=== PATIENT | male | born 1975 | race Caucasian/White ===

== ENCOUNTER 2018-01-08 08:59 | Inpatient (IN) | payer OTHER, MEDICAID ==
[~2018-01-08] VITALS: Ht 167.6 cm; Wt 81.6 kg
[2018-01-08 09:01] VITALS: BP 137/85
[2018-01-08 09:27] LABS: ABSOLUTE LYMPHOCYTES 1.5 thou/uL (0.8-5.3); ABSOLUTE MONOCYTES 0.4 thou/uL (0.0-1.2); ABSOLUTE NEUTROPHILS 6.6 thou/uL (1.6-8.1); BASOPHILS 0.4 %; EOSINOPHILS 0.1 %; HEMATOCRIT 49.1 % (42.0-52.0); HEMOGLOBIN 16.7 gm/dL (14.0-18.0); LYMPHOCYTES 17.7 %; MCH 32.7 pg (26.0-34.0); MCHC 33.9 g/dL (28.0-37.0); MCV 96.5 fL (80.0-100.0); MONOCYTES 4.7 %; MPV 7.4 fl. (7.2-11.1); NUCLEATED RBCS 0 /100WBC; PLATELET COUNT* 306 thou/uL (150-400); POLYS 77.1 %; RBC 5.09 mil/uL (4.50-6.00); RDW-CV 12.2 % (10.5-14.5); WBC 8.5 thou/uL (4.0-11.0)
[2018-01-08 09:41] LABS: APTT 20.2 Seconds (25.0-31.3); PROTIME 10.4 Seconds (9.20-11.50)
[2018-01-08 09:46] LABS: CALCIUM 8.7 mg/dL (8.5-10.1); CREATININE 0.9 mg/dL (0.6-1.3); POTASSIUM 4.1 mmol/L (3.5-5.1)
[2018-01-08 09:53] LABS: ALBUMIN 4.6 g/dL (3.4-5.0); TOTAL BILIRUBIN 0.7 mg/dL (<0.1-1.0); TOTAL PROTEIN 7.8 g/dL (6.4-8.2)
[2018-01-08 09:59] LABS: TROPONIN-I LEVEL 1.69 ng/mL (<0.06)
[2018-01-08] MEDS ORDERED: NORCO 5-325 TA1 EACH PO (10:56)
[2018-01-08] MEDS ORDERED: PHENERGAN 25 MG25 M1 PO (10:56)
[2018-01-08 11:27] LABS: CHOLESTEROL 244 mg/dL (<200); HDL CHOLESTEROL 44 mg/dL (>40); LDL CHOLESTEROL 184 mg/dL (<100); TC:HDL 5.5 Ratio (Not establshd); TRIGLYCERIDE 81 mg/dL (<150); VLDL 16 mg/dL (<40)
[2018-01-08 11:31] LABS: SERUM ASSESSMENT Clear
[2018-01-08 11:46] VITALS: BP 126/76
--- NOTE | 2018-01-08 12:18 | NUR ---
PT ORIENTED TO ROOM AND UNIT. BED LOW AND LOCKED SIDE RAILS UPX 3 , CALL LIGHT IN REACH. HEPARIN GTT REMAINS. WILL CONTINUE TO ASSESS.
--- NOTE | 2018-01-08 16:38 | NUR ---
DR. CLARKE HAD LONG TALK WITH PATIENT ABOUT IMPORTANCE OF STAYING IN HOSPITAL AND POSSIBLY HAVING A HEART CATH. I WAS WITH DR. CLARKE AT BEDSIDE WHILE HE DID COMPLETE PATIENT EDUCATION ABOUT BENEFITS AND RISKS OF PATIENT'S CONDITION. MARY IN CT ONFORMED ME THAT CTA ORDERED BY DR. CLARKE WOULD NOT BE ABLE TO BE COMPETED UNTIL WEDNESDAY. DR CLARKE AWARE. WILL CONTINUE TO ASSESS.
--- NOTE | 2018-01-08 18:42 | NUR ---
PT DENIES CHEST PAIN AT THIS TIME HOWEVER IS NO REQUESTING A HEART CATH. INFORM DR. 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 WILL PASS ONTO NIGHT RN.
[2018-01-08 20:00] VITALS: BP 123/84
--- NOTE | 2018-01-08 22:09 | NUR ---
CALL TO DOCTOR TRICIA REGARDING PATIENT'S PAIN, SEE ORDERS. DOCTOR ISSAC CALLED REGARDING PATIENT'S PAIN, SEE ORDERS. PATIENT IS NO LONGER COMPLAINING OF CHEST PAIN.
[2018-01-09] VITALS (22 sets, daily range): BP systolic 87–152; BP diastolic 57–107
--- NOTE | 2018-01-09 14:57 | EKG ---
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
--- NOTE | 2018-01-09 14:57 | EKG ---
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: : 1975 Requested By: Kita Severino Order Number: [id number] Kenyatta MD: Ruben Wilder Measurements Intervals [place] Rate: 69 P: 49 [place]: 152 QRS: -27 QRSD: 88 T: -2 QT: 426 QTc: 457 Interpretive Statements Sinus rhythm LVH by voltage Inferior infarct, age indeterminate Abnrm T, consider ischemia, anterolateral lds No previous ECG available for comparison Electronically Signed On 01-09-2018 14:57:43 CDT by Ruben Wilder [email or web address] <ELECTRONICALLY SIGNED> By: Ruben Wilder MD, FACC 01/09/18 1457 1122 1122 Ruben Wilder MD, [facility] /EPI
--- NOTE | 2018-01-09 14:59 | EKG ---
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: : 1975 Requested By: Kita Severino Order Number: [id number] MD: Ruben Wilder Measurements Intervals [place] Rate: 103 P: 46 [place]: 156 QRS: -34 QRSD: 79 T: 0 QT: 351 QTc: 460 Interpretive Statements Sinus tachycardia Probable left atrial enlargement Inferior infarct, old Anterolateral infarct, age indeterminate No previous ECG available for comparison Electronically Signed On 01-09-2018 14:59:23 CDT by Ruben Wilder [email or web address] <ELECTRONICALLY SIGNED> By: Ruben Wilder MD, [facility] 01/09/18 1459 1709 170 Ruben Wilder MD, FACC /EPI
--- NOTE | 2018-01-09 15:02 | EKG ---
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 : 1975 Requested By: Kita Severino Order Number: [id number] Kenyatta MD: Ruben Wilder Measurements Intervals [place] Rate: 72 P: 54 [place]: 152 QRS: -30 QRSD: 101 T: -36 QT: 453 QTc: 496 Interpretive Statements Sinus rhythm Inferior infarct, age indeterminate Anterolateral infarct, age indeterminate No previous ECG available for comparison Electronically Signed On 01-09-2018 15:02:31 CDT by Ruben Wilder [email or web address] <ELECTRONICALLY SIGNED> By: Ruben Wilder MD, [facility] 01/09/18 1502 0 0 Ruben Wilder MD, FAC /EPI
--- NOTE | 2018-01-09 15:40 | CARD ---
[address] [address] CARDIAC CATH REPORT Name: BLADIMIR FELTON Room: 224-P [facility] IN .R.#: [id number] Admission: 01/08/18 Attend Phys: Ruben Wilder MD Discharge: Date of : 79 Report #: [id number] THIS REPORT FOR: //name// APPROVED REPORT Study performed: 01/09/2018 07:30:38 Patient Details Patient Status: In-Patient Room #: 224 The patient is a 42 year-old male Event Personnel Samanta Hassan, Raphael Chairez (R) Daniel Gunn David Drying Oven Tender, Louann Boogie clinical administrator Performed Left Heart Cath w/or w/o Coronaries [id number] [facility] Indication Abnormal ECG, Non-STEMI , Chest pain Risk Factors Hypercholesterolemia, Tobacco History () Admission/Lab Medications/Medications given during procedure Glycoprotein IllbIlla Inhibitors Procedure Narrative The patient was brought urgently to the Cardiac Catheterization Laboratory and was prepped and draped in a sterile manner. The right femoral was infiltrated with 2% Lidocaine subcutaneous anesthesia. A 6fr Ultimum Sheath sheath was inserted into the right femoral artery. Coronary angiography was performed using coronary diagnostic catheters. The right coronary system was accessed and visualized with a Diagnostic catheter. The left coronary system was accessed and visualized with a Diagnostic catheter. The left ventricle was accessed and visualized with a Diagnostic catheter. Left ventricular/Aortic Valve gradient assessed via catheter pullback. Left ventriculogram was performed in PATRICK projection. Closure device was deployed with a 6 Fr Angioseal. The patient tolerated the procedure well and there were no complications associated with the procedure. There was no hematoma. Procedure initially performed from the right radial artery. However, because of tortuosity of the ascending aorta, the procedure had [place] [address] CARDIAC CATH REPORT Name: BLADIMIR FELTON Room: [address] IN [facility].#: [id number] Admission: 01/08/18 Attend Phys: Ruben Wilder MD Discharge: Date of : 79 Report #: [id number] femoral artery. Vascband was placed over the right radial artery at the end of the procedure. Intraoperative Conscious Sedation Sedation start time: 819 Case end Time: 913 Fentanyl 75 mcg Versed 2 mg Fluoro Time: 11.4 minutes Dose: 1711 mGy Contrast Type and Amount: Omnipaque 270 ml Hemodynamics The aortic pressure is 101/74 mmHg with a mean of 87 mmHg. The left ventricular pressure is 86/18 mmHg with a mean of mmHg. The left ventricular end diastolic pressure is 18 mmHg. There was no gradient across the aortic valve upon pullback. Pullback from the left ventricle to the aorta revealed no gradient across the aortic valve. PCI Technique Lesion Anticoagulation was achieved with Heparin. The patient was on IV Aggrastat Patient was preloaded with Plavix. Percutaneous coronary intervention was performed on the mid left anterior descending artery segment. The lesion stenosis prior to intervention was 99% with STEPAN 1 flow. A xb 3.5 lad Guide Catheter was used to engage the lm ostium. A bmw Interventional Guidewire was used to cross the lesion. Final angiography reveals 99 % stenosis with STEPAN 1 flow. COMMENTS BMW wire was unable to cross the subtotal occlusion in the mid lad. Attempted to cross the stenosis with a whisper wire. Unable to advance wire across the stenosis suggesting the stenosis represented a chronic occlusion. Conclusion 1. 95% stenosis noted of proximal lad, and 99% stenosis noted of mid lad, with slow antegrade filling of the distal lad 2. unable to advance wire into distal lad suggesting the stenosis represented a chronic occlusion 3. 70% stenosis of the second margianl branch 4. 90% stenosis of distal circumflex, and 90% stenosis of posterior descending branch 5. Apical akinesis of the left ventricle [place] [address] CARDIAC CATH REPORT Name: BLADIMIR FELTON Room: [address] IN [facility].#: [id number] Admission: 01/08/18 Attend Phys: Ruben Wilder MD Discharge: Date of : 79 Report #: [id number] of 40-45% Recommendations CABG Medications Administered Clopidogrel <ELECTRONICALLY SIGNED> By: Vasyl Sanchez MD, FACC 01/09/18 1539 1539 1539Daviellie Sanchez MD, [facility] /INF
--- NOTE | 2018-01-09 18:45 | NUR ---
RECEIVED REPORT. ASSUMED CARE OF PT AROUND 0730. PT A&O X4, VSS, O2 SAT 100% ON 2L PER NC - TITRATED OFF TO RA. 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 AM ASSESSMENT AND VITALS COMPLETED CHARTED. PT VERY ANXIOUS ABOUT CATH PROCEDURE THIS AM - SPOKE TO DR DAVENPORT REGARDING PROCEDURE AND WAS ABLE TO CONTINUE WITH CATH PLANNED. NO INTERVENTION PERFORMED - CARDIOLOGY RECOMMENDING MORE AGRESSIVE TREATMENT. PT VERY ANXIOUS AND CONCERNED ABOUT CARDIOLOGY RECOMMENDATIONS. DR CLARKE SPOKE WITH PT AND SPOUSE AT LENGTH REGARDING SITUATION, PT FELT MORE AT EASE AFTER SPEAKING TO DR CLARKE. RIGHT GROIN SITE HAD SLIGHT OOZING - PRESSURE HELD, DRESSING CHANGED. NO FURTHER OOZING. NO HEMATOMA. RIGHT RADIAL SITE CLEAN, DRY AND INTACT. VASCBAND REMOVED PER PROTOCOL. POST CATH VITALS CHARTED. PT EATING AND DRINKING WITHOUT ISSUE. IV PAIN MEDICATION GIVEN FOR REPORT OF RIGHT GROIN PAIN WITH PARTIAL RELIEF. AT BEDSIDE MOST OF SHIFT. PT ABLE TO GET UP AT 4PM; VOIDED WITHOUT ISSUE. PLAN IS FOR PT TO DECIDE UPON ROUTE OF TREATMENT HE FEELS COMFORTABLE WITH. PT CURRENTLY WATCHING TV IN BED. CALL LIGHT IS WITHIN REACH. HOURLY ROUNDING PERFORMED. LOW FALL RISK PRECAUTIONS IN PLACE.
[2018-01-10] VITALS (7 sets, daily range): BP systolic 91–144; BP diastolic 53–95
--- NOTE | 2018-01-10 04:19 | NUR ---
END SHIFT: PT RESTED WELL. ANXIOUS ABOUT DIAGNOSIS AND TREATMENTS. NEEDS MUCH ENCOURAGEMENT. PAIN IN RIGHT GROIN RELIEVED WITH PAIN MEDICATION X1. SB/NSR ON MONITOR, NO ECTOPY. MEDICATION INFORMATION SHEETS PRINTED OFF AND GIVEN TO PATIENT. ASSESSMENT UNCHANGED. PRESSURES HAVE BEEN A LITTLE SOFT OVERNIGHT. PATIENT IS CONCERNED THAT IT IS DUE TO HIS NEW BP MEDICATION. SAFETY PRECAUTIONS IN PLACE. CALL LIGHT IN REACH. PERFORMED HOURLY ROUNDING. WILL CONT TO MONITOR.
--- NOTE | 2018-01-10 16:08 | NUR ---
Pt is A&O. Resides at home with his . Normally independent. No DME. No hx of HH or SNF. Pt stated that he recently started a job, but had to quit when he got sick. CM spoke with Dr Wilder, he plans to speak with Pt today regarding treatment plan. CM following.
--- NOTE | 2018-01-10 16:36 | 2DMMODE ---
[place] [address] 2 D/M-MODE ECHOCARDIOGRAM Name: BLADIMIR FELTON Room: [address] IN [facility]#: [id number] Admission: 01/08/18 Attend Phys: Ruben Wilder, Discharge: Date of : 79 Date of Service: 01/10/18 1440 Report #: [id number] THIS REPORT FOR: //name// APPROVED REPORT Study performed: 01/10/2018 11:10:19 EXAM: Comprehensive 2D, Doppler, and color-flow Echocardiogram Patient Location: In-Patient Room #: [facility] Status: routine BSA: 1.91 HR: 55 bpm BP: 130/85 mmHg Rhythm: NSR Other Information Study Quality: Good Indications Acute MO 2D Dimensions IVSd: 10.76 (7-11mm) LVOT Diam: 19.68 (18-24mm) LVDd: 44.35 mm PWd: 7.83 (7-11mm) Ascending Ao: 28.07 (22-36mm) LVDs: 24.49 (25-40mm) Aortic Root: 27.67 mm Volumes Left Atrial Volume (Systole) LA ESV Index: 32.20 mL/m2 Aortic Valve AoV Peak Booker.: 1.41 m/s AO Peak Gr.: 7.90 mmHg LVOT Max P.86 mmHg AO Mean Gr.: 3.94 mmHg LVOT Mean P.89 mmHg LVOT Max V: 1.10 m/s AO V2 VTI: 25.26 cm LVOT Mean V: 0.61 m/s MARIYA (VTI): 2.75 cm2 LVOT V1 VTI: 22.84 cm Mitral Valve E/A Ratio: 2.23 MV Decel. Time: 161.61 ms MV E Max Booker.: 0.98 m/[place] [address] 2 D/M-MODE ECHOCARDIOGRAM Name: BLADIMIR FELTON Room: [address] IN .R.#: [id number] Admission: 01/08/18 Attend Phys: Ruben Wilder, Discharge: Date of : 79 Date of Service: 01/10/18 1440 Report #: [id number] MV PHT: 46.87 ms MVA (PHT): 4.69 cm2 TDI E/Lateral E': 5.44 E/Medial E': 7.00 Medial E' Booker.: 0.14 m/s Lateral E' Booker.: 0.18 m/s Pulmonary Valve PV Peak Booker.: 1.16 m/s PV Peak Gr.: 5.36 mmHg Tricuspid Valve RAP Estimate: 5.00 mmHg TR Peak Gr.: 22.93 mmHg RVSP: 28.00 mmHg PA Pressure: 28.00 mmHg Left Ventricle The left ventricle is normal size. There is distal septal and apical hypokinesis. There is normal left ventricular wall thickness. Left ventricular systolic function is borderline. LVEF is 50-55%. The left ventricular diastolic function is normal. Right Ventricle The right ventricle is normal size. The right ventricular systolic function is normal. Atria The left atrium size is normal. The right atrium size is normal. Aortic Valve Mild aortic valve sclerosis. Trace aortic regurgitation. There is no aortic valvular stenosis. Mitral Valve The mitral valve is normal in structure. There is no mitral valve regurgitation noted. No evidence of mitral valve stenosis. Tricuspid Valve The tricuspid valve is normal in structure. Mild tricuspid regurgitation. Pulmonic Valve The pulmonary valve is normal in structure. There is no pulmonic [place] [address] 2 D/M-MODE ECHOCARDIOGRAM Name: BLADIMIR FELTON Room: [address] IN [facility]#: [id number] Admission: 01/08/18 Attend Phys: Ruben Wilder, Discharge: Date of : 79 Date of Service: 01/10/18 1440 Report #: [id number] Great Vessels The aortic root is normal in size. IVC is normal in size and collapses >50% with inspiration. Pericardium There is no pericardial effusion. <Conclusion> The left ventricle is normal size. There is normal left ventricular wall thickness. Left ventricular systolic function is borderline. LVEF is 50-55%. The left ventricular diastolic function is normal. The right ventricle is normal size. The left atrium size is normal. Mild aortic valve sclerosis. Trace aortic regurgitation. There is no aortic valvular stenosis. The mitral valve is normal in structure. The tricuspid valve is normal in structure. Mild tricuspid regurgitation. IVC is normal in size and collapses >50% with inspiration. There is no pericardial effusion. There is distal septal and apical hypokinesis. <ELECTRONICALLY SIGNED> By: Ismael Davis MD, FACC 01/10/18 1440 144 144 Ismael Davis MD, FACC /INF
[2018-01-11] VITALS (7 sets, daily range): BP systolic 82–122; BP diastolic 45–77
--- NOTE | 2018-01-11 04:40 | NUR ---
PATIENT PARTIALLY PROGRESSING TOWARDS GOALS: RIGHT GROIN PAIN PARTIALLY MANAGED WITH PRN PAIN MEDICATION AND RELAXATION. RIGHT GROIN CARDIAC CATH SITE WITHOUT HEMATOMA OR BLEEDING BUT TENDER UPON TOUCH. RIGHT RADIAL SITE COVERED WITH GAUZE/TEGADERM AND C/D/I. PATIENT DENIES NUMBNESS/TINGLING IN EXTREMITIES. PATIENT DENIES CHEST PAIN OR DISCOMFORT. HOURLY ROUNDING OBSERVED. CALL LIGHT WITHIN REACH
[2018-01-11 05:40] LABS: ABSOLUTE EOSINOPHILS 0.1 thou/uL (0.0-0.7); ABSOLUTE LYMPHOCYTES 2.4 thou/uL (0.8-5.3); ABSOLUTE MONOCYTES 0.7 thou/uL (0.0-1.2); ABSOLUTE NEUTROPHILS 4.6 thou/uL (1.6-8.1); BASOPHILS 0.3 %; EOSINOPHILS 1.7 %; HEMOGLOBIN 14.9 gm/dL (14.0-18.0); LYMPHOCYTES 30.5 %; MONOCYTES 8.8 %; MPV 7.3 fl. (7.2-11.1); NUCLEATED RBCS 0 /100WBC; PLATELET COUNT* 262 thou/uL (150-400); POLYS 58.7 %; RBC 4.53 mil/uL (4.50-6.00); RDW-CV 12.3 % (10.5-14.5); WBC 7.8 thou/uL (4.0-11.0)
[2018-01-12] VITALS (8 sets, daily range): BP systolic 91–122; BP diastolic 53–82
--- NOTE | 2018-01-12 05:23 | NUR ---
PATIENT RESTED IN BED, NO ACUTE CHANGES. PATIENT DID NOW SHOW SIGNS OF DISTRESS. PATIENT DID NOT COMPLAIN OF CHEST PAIN. FALL PRECAUTIONS IN PLACE, CALL LIGHT WITH IN REACH, HOURLY RONDING OBSERVED.
--- NOTE | 2018-01-12 07:17 | NUR ---
ASSUMED CARE OF PT AT THIS TIME. REPORT FROM YO JEAGER. PT AOX4 AT THIS TIME. WILL CONTINUE TO MONITOR AND ASSESS.
--- NOTE | 2018-01-12 08:50 | NUR ---
PAGED TEAM REGARDING PT CONCERN REGARDING NEW BRUISING BELOW CATH SITE. PT HAD CATH ON WEDNESDAY. AREA IS TENDER BUT SOFT AT THIS TIME. WILL AWAIT CALL FROM TEAM
--- NOTE | 2018-01-12 16:06 | NUR ---
PT CALLED OUT STATING THAT HE FEELS LIGHTHEADED AND DIZZY AT THIS TIME. PT DENIES CHEST PAIN, BUT STATES HE HAS HIGH PAIN TOLERANCE. PT RESTING IN BED AND LACY WITH CARDIOLOGY AND DR CLARKE'S OFFICE PAGED AT THIS TIME. PT EDUCATED TO CALL OUT FOR AMBULATION NEEDS AT THIS TIME.
--- NOTE | 2018-01-12 18:39 | NUR ---
PT VSS THIS SHIFT AND SR ON THE MONITOR. PT DID CALL OUT WITH DIZZINESS AND LIGHTHEADEDNESS, VSS AT THAT TIME AND EKG OBTAINED. NO CONCERNS BY DR CLARKE AT THAT TIME. PT HAS TAKEN PAIN MEDS FOR GROIN PAIN THAT HAS NEW BRUISING THIS AM, TEAM AWARE. NO NEW ORDERS OR CONCERNS REGARDING BRUISING AT THIS TIME. PT TO BE NPO BE NPO AT MIDNIGHT TONIGHT. PT WAITING TO POSSIBLY HAVE CABG AT THIS TIME AND HAS TO WAIT 5 DAYS OFF PLAVIX. PT HAS ANXIETY BUT NO MEDICAITONS WERE PROVIDED FOR INCREASED ANXIETY THIS SHIFT.
[2018-01-12 22:40] LABS: ABSOLUTE EOSINOPHILS 0.2 thou/uL (0.0-0.7); ABSOLUTE LYMPHOCYTES 2.2 thou/uL (0.8-5.3); ABSOLUTE MONOCYTES 0.8 thou/uL (0.0-1.2); ABSOLUTE NEUTROPHILS 5.6 thou/uL (1.6-8.1); BASOPHILS 0.6 %; EOSINOPHILS 2.1 %; HEMATOCRIT 42.3 % (42.0-52.0); HEMOGLOBIN 14.6 gm/dL (14.0-18.0); MCH 33.1 pg (26.0-34.0); MCHC 34.4 g/dL (28.0-37.0); MCV 96.1 fL (80.0-100.0); MPV 7.2 fl. (7.2-11.1); NUCLEATED RBCS 0 /100WBC; PLATELET COUNT* 273 thou/uL (150-400); POLYS 63.3 %; RDW-CV 12.3 % (10.5-14.5); WBC 8.9 thou/uL (4.0-11.0)
[2018-01-12 23:15] LABS: PROTIME 10.2 Seconds (9.20-11.50)
[2018-01-13] VITALS (18 sets, daily range): BP systolic 93–132; BP diastolic 58–86
--- NOTE | 2018-01-13 01:41 | NUR ---
CALL FROM DOCTOR CLARKE REGARDING CATH LATER TODAY, SEE ORDERS.
--- NOTE | 2018-01-13 10:54 | NUR ---
RECEIVED REPORT FROM HEIDE AND ASSUMED CARE OF PT @ 2149.PT IS A/O X4,VSS,TRACING SR ON THE MONITOR.LUNG SOUNDS ARE CLEAR.LAST BM WAS 01/11/18.IV LEFT FOREARM PATENT WITH HEPARIN RUNNING @ 10ML/HR.IV RIGHT AC PATENT AND SALINE LOCKED.NPO STATUS MAINTAINED FOR CATH PROCEDURE THIS AFTERNOON.PT IS CALM AND COOPERATIVE WITH C/O PAIN IN RIGHT GROIN.PT IS UP AD GARETH IN ROOM.PT LEFT RESTING IN BED WITH CALL LIGHT WITHIN REACH.WILL CONTINUE TO MONITOR.
--- NOTE | 2018-01-13 13:53 | EKG ---
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[facility] : 1975 Requested By: Yasmin Case Order Number: [id number] Reading MD: Ismael Davis Measurements Intervals [place] Rate: 56 P: 38 [place]: 149 QRS: -18 QRSD: 87 T: -16 QT: 405 QTc: 391 Interpretive Statements Sinus rhythm Inferior infarct, age indeterminate Abnrm T, consider ischemia, anterolateral lds Compared to ECG 01/09/2018 05:11:07 Possible ischemia now present Myocardial infarct finding still present Electronically Signed On 01-13-2018 13:52:57 CDT by Ismael Davis [email or web address] <ELECTRONICALLY SIGNED> By: Ismael Davis MD, FACC 01/13/18 1352 1619 1619 Ismael Davis MD, FAC /EPI
--- NOTE | 2018-01-13 19:06 | NUR ---
PT HAD CATH TODAY IN LEFT GROIN WITH STENTS PLACED.SITE CLEAN,DRY AND INTACT,VSS.TRACING SR ON THE MONITOR.POST CATH EKG COMPLETED.IV HEPARIN DRIP D/C.NS INFUSING @ 125ML HR IN LEFT FOREARM.PT INSTRUCTED TO BE IMMOBILIZED UNTIL 9:30PM. HEART HEALTHY DIET RESUMED.PAIN MANAGED WELL WITH PO AND IV MEDICATIONS.PT INFORMED OF PLAN OF CARE AND COMMUNICATES UNDERSTANDING.HOURLY ROUNDING COMPLETED FOR PT SAFETY.CALL LIGHT AND FALL PRECAUTIONS IN PLACE. WILL CONTINUE TO MONITOR FOR DURATION OF SHIFT. AT BEDSIDE.
[2018-01-14] VITALS: BP 91/56
--- NOTE | 2018-01-14 01:31 | NUR ---
PATIENT RESTED IN BED, NO ACUTE CHANGES. PATIENT DID NOT SHOW SIGNS OF DISTRESS. FALL PRECAUTIONS IN PLACE, CALL LIGHT WITH IN REACH, HOURLY ROUNDING OBSERVED. PATIENT DID NOT COMPLAIN OF CHEST PAIN.
[2018-01-14 04:00] VITALS: BP 85/54
[2018-01-14 04:01] VITALS: BP 92/48
[2018-01-14 04:55] LABS: ABSOLUTE EOSINOPHILS 0.1 thou/uL (0.0-0.7); ABSOLUTE LYMPHOCYTES 1.9 thou/uL (0.8-5.3); ABSOLUTE MONOCYTES 0.6 thou/uL (0.0-1.2); ABSOLUTE NEUTROPHILS 4.3 thou/uL (1.6-8.1); BASOPHILS 0.3 %; EOSINOPHILS 1.5 %; HEMATOCRIT 40.9 % (42.0-52.0); HEMOGLOBIN 14.1 gm/dL (14.0-18.0); LYMPHOCYTES 27.5 %; MCH 33.5 pg (26.0-34.0); MCHC 34.5 g/dL (28.0-37.0); MCV 97.1 fL (80.0-100.0); MONOCYTES 8.9 %; MPV 7.4 fl. (7.2-11.1); NUCLEATED RBCS 0 /100WBC; PLATELET COUNT* 272 thou/uL (150-400); POLYS 61.8 %; RBC 4.21 mil/uL (4.50-6.00); RDW-CV 12.5 % (10.5-14.5)
[2018-01-14 05:34] LABS: ALBUMIN 3.3 g/dL (3.4-5.0); CALCIUM 8.5 mg/dL (8.5-10.1); CREATININE 0.7 mg/dL (0.6-1.3); POTASSIUM 4.7 mmol/L (3.5-5.1); TOTAL BILIRUBIN 0.5 mg/dL (<0.1-1.0); TOTAL PROTEIN 6.1 g/dL (6.4-8.2)
[2018-01-14 05:40] LABS: TROPONIN-I LEVEL 0.78 ng/mL (<0.06)
[2018-01-14 07:50] VITALS: BP 117/76
--- NOTE | 2018-01-14 10:41 | NUR ---
RECIEVED REPORT FROM HEIDE AND ASSUMED CARE OF PT @ 0234.PT IS A/OX 4,VSS,TRACING SB ON THE MONITOR.LUNG SOUNDS ARE CLEAR.LAST BM WAS 01/11/18.IV PATENT WITH IVF INFUSING @ 125ML/HR.PT IS COOPERATIVE BUT SEEMS ANXIOUS.PT C/O PAIN IN LEFT GROIN.MEDICATIONS GIVEN WITH RELIEF.PT IS UP AD GARETH IN ROOM.WILL CONTINUE TO MONITOR. PT OK FOR DISCHARGE PER CARDIOLOGY.
[2018-01-14] MEDS ORDERED: ASPIR 8181 MG PO (11:08)
[2018-01-14] MEDS ORDERED: LIPITOR 20 MG T20 M1 PO (11:10)
[2018-01-14] MEDS ORDERED: COLACE100 MG PO (11:11)
[2018-01-14] MEDS ORDERED: LOPRESSOR50 PO (11:13)
[2018-01-14] MEDS ORDERED: EFFIENT10 MG PO (11:13)
[2018-01-14 11:22] VITALS: BP 117/57
--- NOTE | 2018-01-14 11:39 | CARD ---
[address] [address] CARDIAC CATH REPORT Name: BLADIMIR FELTON Room: [address] IN [facility].#: [id number] Admission: 01/08/18 Attend Phys: Ruben Wilder MD Discharge: Date of : 79 Report #: [id number] THIS REPORT FOR: //name// APPROVED REPORT Study performed: 01/13/2018 13:51:32 Patient Details Patient Status: In-Patient Room #: 225 The patient is a 42 year-old male Event Personnel Ismael Davis Alignment Mechanic, Romelia Roberts RN Egg Buyer, Rina Winchester Monitor, Brandi Hassan RTChong Monitor, Yovani Badillo Scrub Procedures Performed Art Access - L femoral artery* Left Heart Cath w/or w/o Coronaries [facility] Place w/wo Plasty Single LAD Hemostasis w/ Angioseal; recanalization of chronic total occlusion of the mid left anterior descending coronary artery with deployment of drug-eluting stents in the proximal mid and distal LAD Indication Non-STEMI Risk Factors Hypercholesterolemia Admission/Lab Medications/Medications given during procedure Aspirin, Platelet Aff. Inhib., Aspirin PO 162 mg; Angiomax bolus and infusion Procedure Narrative The patient was brought electively to the Cardiac Catheterization Laboratory and was prepped and draped in a sterile manner. The left femoral was infiltrated with 2% Lidocaine subcutaneous anesthesia. A [place] 6 FR sheath was inserted into the left femoral artery. Coronary angiography was performed using coronary diagnostic catheters. The left coronary system was accessed and visualized with a Diagnostic 6Fr JL4 catheter. The left ventricle was accessed and visualized with a Diagnostic 6Fr straight pigtail catheter. Left ventricular/Aortic Valve gradient assessed via catheter pullback. Pre-demployment femoral angiogram was performed . Closure device was deployed with a 6 Fr angioseal. [place] [address] CARDIAC CATH REPORT Name: BLADIMIR FELTON Room: [address] IN [facility].#: [id number] Admission: 01/08/18 Attend Phys: Ruben Wilder MD Discharge: Date of : 79 Report #: [id number] well and there were no complications associated with the procedure. There was no hematoma. Intraoperative Conscious Sedation Sedation start time: 14:13 Case end Time: 16:11 Fentanyl 125 mcg Versed 5 mg Fluoro Time: 38.9 minutes Dose: DAP 049860 cGycm2 3422 mGy Contrast Type and Amount: Visipaque 760 ml Coronary Angiography The patient's coronary anatomy is left dominant. Diagnostic Cath Left Main 0% narrowing LAD 90% proximal stenosis with 100% mid LAD occlusion with recanalization to fill the distal LAD in delayed antegrade fashion Circumflex Prominent and dominant vessel with 80% stenosis of the second marginal branch and 90% stenosis of the proximal portion of the prominent posterior descending branch of the terminal circumflex Right Coronary Recently defined small nondominant vessel with 30% mid vessel narrowing Left Ventriculography Left Ventriculography was not performed. Hemodynamics The aortic pressure is 121/61 mmHg with a mean of 73 mmHg. The left ventricular pressure is 112/2 mmHg with a mean of mmHg. The left ventricular end diastolic pressure is 14 mmHg. Pullback from the left ventricle to the aorta revealed no gradient across the aortic valve. PCI Technique Lesion Anticoagulation was achieved with Angiomax. Percutaneous coronary intervention was performed on the proximal left anterior descending artery segment. The lesion stenosis prior to intervention was 90% with STEPAN 3 flow. A 6FR XB LAD 3.0 100CM Guide Catheter was used to engage the ostium. A Plerts Flex 300cm Interventional Guidewire was used to cross the lesion[place] [address] CARDIAC CATH REPORT Name: BLADIMIR FELTON Room: [address]#: [id number] Admission: 01/08/18 Attend Phys: Ruben Wilder MD Discharge: Date of : 79 Report #: [id number] A Balloon catheter Trek RX 2.25 X 12 was inserted and inflated up to 12.00atm for 9seconds. Additional Inflation: 15.00atm for 9seconds. STENT DEPLOYMENT A drug-eluting stent Elvis RX Stent 2.5X18mm was inserted and inflated up to 8.00atm for 8seconds. Additional Inflation: 12.00atm for 6seconds. Additional Inflation: 18atm for 7seconds. Final angiography reveals 10 % stenosis with STEPAN 3 flow. PCI Technique Lesion 2 Percutaneous Coronary Intervention was performed on the mid left anterior descending artery segment. The lesion stenosis prior to intervention was 100% with STEPAN 1 flow. A 6FR XB LAD 3.0 100CM Guide Catheter was used to engage the ostium. A Prowater Flex 300cm Interventional Guidewire was used to cross the lesion. Balloon Dilation A Balloon catheter Mini Trek RX 2.0 X 12 was inserted and inflated up to 10.00atm for 5seconds. Additional Inflation: 10.00atm for 8seconds. I advanced a long prowater flex to the mid LAD with a fine cross catheter advanced over that wire. I then traversed the area of chronic total occlusion of the mid LAD with an 014 Fielder XT wire. I then advanced a long 1.5 x 15 mm mini trek catheter and dilated the area of chronic total occlusion in the mid LAD inflating the catheter to 16-18 janel. Then dilated that site with a 2.5 x 12 NC trek balloon inflated to 16 janel. I then placed one 2.0 x 22 mm elvis drug-eluting stent, deploying it to 14-16 janel and a 2.0 x 8 elvis and distal LAD deployed to 10 janel Stent Deployment A drug-eluting stent Elvis RX Stent 2.0X8mm was inserted and inflated up to 10.00atm for 10seconds. Additional Inflation: 10.00atm for 7seconds. Additional Inflation: 12.00atm for 6seconds. Final angiography reveals 10 % stenosis with STEPAN 3 flow. PCI Technique Lesion 3 Percutaneous Coronary Intervention was performed on the distal LAD. The lesion stenosis prior to intervention was 75% with STEPAN 1 flow. Stent Deployment A drug-eluting stent elvis Resolute RX 2.5X12 was inserted and inflated up to 8atm for 10seconds. [address] [address] CARDIAC CATH REPORT Name: BLADIMIR FELTON Room: [address] IN Dimitri#: [id number] Admission: 01/08/18 Attend Phys: Ruben Wilder MD Discharge: Date of : 79 Report #: [id number] Final angiography reveals 0 % stenosis with STEPAN 3 flow. Conclusion #1 severe coronary artery disease characterized by the following: A 90% proximal LAD occlusion with 100% chronic total occlusion of the mid LAD with recanalization to fill the distal LAD with STEPAN 1 flow B dominant circumflex coronary artery with 80% stenosis of the proximal portion of the second marginal branch and 90% tubular narrowing of the proximal portion of the posterior descending branch of the terminal circumflex C previously defined small nondominant right coronary artery with 30% mid vessel narrowing #2 normal left-sided hemodynamics study #3 successful percutaneous coronary intervention with recanalization of the chronic total occlusion of the mid LAD with 10% residual narrowing following final stent deployment #4 successful percutaneous coronary intervention with deployment of drug-eluting stent at site of 90% proximal LAD stenosis with 10% residual narrowing following stent deployment #5 successful percutaneous coronary intervention with deployment of drug-eluting stent at site of 75% distal LAD stenosis with 0% residual narrowing and STEPAN-3 flow the distal vessel Recommendations Cardiac Risk Reduction Program Aggressive Medical Therapy Medications Administered Aspirin (any) Prasugrel [address] [address] CARDIAC CATH REPORT Name: FELTON,BLADIMIR De Leon Room: [facility] IN M.R.#: [id number] Admission: 01/08/18 Attend Phys: Ruben Wilder MD Discharge: Date of : 79 Report #: [id number] Diagnostic Cath Approved by: Ismael Davis MD Date/Time: 01/14/2018 11:37:42 <ELECTRONICALLY SIGNED> By: Ismael Davis MD, FACC 01/14/18 1138 1138 1138Ismael Davis MD, FACC /INF
--- NOTE | 2018-01-14 11:39 | H ---
[address] [address] HISTORY AND PHYSICAL Name: BLADIMIR FELTON Room: [address] IN .R.#: [id number] Admission: 01/08/18 Attend Phys: Ruben Wilder MD Discharge: Date of : 79 Report #: [id number] THIS REPORT FOR: //name// CC: [facility] physician/PCP Ruben Wilder INDICATION: Chest pain and sjo-SQ-ehddgunlz myocardial infarction. HISTORY OF PRESENT ILLNESS: The patient is a very pleasant, healthy 42-year-old [place] Islander[place] gentleman who presented to the Emergency Room this morning after having episodes of left upper chest wall pressure, associated with some mild nausea. In the Emergency Room, his troponin was elevated, consistent with fsp-MY-krxukngfq myocardial infarction. The patient is pain-free at the time of interview and has been started on a heparin drip. He has no prior cardiac history. His only cardiac risk factors are hypertension and dyslipidemia. He also quit smoking 2 months ago. At the time of interview, he is without cardiac complaint. EKG shows sinus rhythm with some nonspecific T-wave inversion in the anterolateral leads. PAST MEDICAL HISTORY: 1. Hypertension. 2. Hyperlipidemia. FAMILY HISTORY: Noncontributory. SOCIAL HISTORY: The patient quit smoking 2 months ago. He works. His family lives in the area. He has 3 children. REVIEW OF SYSTEMS: As per HPI. PHYSICAL EXAMINATION: VITAL SIGNS: Stable. Blood pressure 150/94, pulse 88 and regular. GENERAL: This is a pleasant, healthy-appearing young gentleman in no distress. NEUROLOGIC: Mood and affect appropriate. HEENT: Extraocular muscles intact. Mucous membranes are moist. NECK: Examination of the neck shows no jugular venous distention. There are no carotid bruits. CHEST: Examination of the chest reveals clear lung palomino, without wheezes or rales. CARDIAC EXAMINATION: Reveals a regular rhythm with normal S1 and S2. I do not appreciate gallop or murmur. ABDOMEN: Examination of the abdomen reveals normal bowel sounds. The abdomen is soft and nontender. EXTREMITIES: Examination of the extremities shows no edema. SKIN: Warm and dry. LABORATORY DATA: A 12-lead EKG shows sinus rhythm [place] [address] HISTORY AND PHYSICAL Name: BLADIMIR FELTON Room: [address] IN [facility]#: [id number] Admission: 01/08/18 Attend Phys: Ruben Wilder MD Discharge: Date of : 79 Report #: [id number] anterolateral leads. I do not appreciate acute ST depression or elevation. Labs are reviewed. Sodium 138, potassium 4.1, chloride 101, bicarbonate 28, BUN 14, creatinine 0.9 and serum glucose 108. LFTs within normal limits. Calcium 8.7. Troponin 1.69, second troponin pending. Coags within normal limits. White blood cell count 8.5, hemoglobin 16.7 and platelet count 306,000. Chest x-ray, no acute process. IMPRESSION AND RECOMMENDATIONS: 1. Qdx-CT-bzntwopju myocardial infarction. I would recommend invasive evaluation; however, the patient wishes to defer this for a noninvasive evaluation. At this point in time, we will continue heparin drip and start statin agent, aspirin and beta christine. The patient will be monitored on telemetry. We will obtain echocardiogram. Pending clinical course, we will consider noninvasive stress testing per the patient's wishes. We will continue to discuss the possible invasive evaluation throughout hospital stay. 2. Hypertension. We will start metoprolol 25 mg twice daily. 3. Hyperlipidemia. We will obtain fasting lipid profile and start atorvastatin at this time. 4. Tobacco use. The patient quit smoking 2 months ago. Absolute cessation advised. <ELECTRONICALLY SIGNED> By: Ruben Wilder MD, FACC 01/14/18 1139 1110 1132[facility] Wilder MD, FACC /nt
[2018-01-14 11:53] VITALS: BP 117/57
--- NOTE | 2018-01-14 13:44 | NUR ---
PT OK FOR DISCHARGE.PAPERWORK COMPLETED AND GIVEN TO THE PT.IV REMOVED.HEART MONITOR REMOVED AND RETURNED TO THE NURSING STATION.ALL PERSONAL BELONGINGS PACKED AND TAKEN WITH THE PT.WORK RELEASE PROVIDED BY .FOLLOW UP APPOINTMENT SCHEDULED.
--- NOTE | 2018-01-14 18:02 | EKG ---
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1975 Requested By: Ismael Davis Order Number: [id number] Reading MD: Vasyl Sanchez Measurements Intervals [place] Rate: 72 P: 52 [place]: 156 QRS: -19 QRSD: 87 T: -9 QT: 372 QTc: 408 Interpretive Statements Sinus rhythm Inferior infarct, age indeterminate Probable anteroseptal infarct, Baseline wander in lead(s) V1 Compared to ECG 01/12/2018 16:19:44 Myocardial infarct finding still present Electronically Signed On 01-14-2018 18:02:28 CDT by Vasyl Sanchez [email or web address] <ELECTRONICALLY SIGNED> By: Vasyl Sanchez MD, FACC 01/14/18 1802 1738 1738 Vasyl Sanchez MD, FAC /EPI
--- NOTE | 2018-01-14 18:11 | EKG ---
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
--- NOTE | 2018-01-14 19:42 | D ---
[address] [address] DISCHARGE SUMMARY Name: BLADIMIR FELTON Room: [address] IN M.R.#: [id number] Admission: 01/08/18 Attend Phys: Ruben Wilder MD Discharge: 01/14/18 Date of : 79 Report #: [id number] THIS REPORT FOR: //name// CC: [facility] physician/PCP Ruben Wilder DATE OF SERVICE: 01/14/2018 DISCHARGE DIAGNOSES: 1. Non-ST elevation myocardial infarction. 2. Hyperlipidemia. PROCEDURES DURING THE HOSPITALIZATION: 1. Coronary angiography. 2. Left ventriculography. 3. Percutaneous coronary intervention to the left anterior descending coronary artery. 4. Echocardiogram. HOSPITAL COURSE: The patient was admitted through the Emergency Room on 01/08/2018 with a diagnosis of non-ST elevation myocardial infarction. Additional cardiac risk factors included hypertension and dyslipidemia. The patient underwent cardiac catheterization that showed significant disease involving the mid to distal LAD, circumflex, PDA and obtuse marginal branches. Initial attempt at intervention was unsuccessful. The patient was kept in the hospital and placed on heparin and Aggrastat drip. The patient underwent repeat intervention on 01/12/2018. The patient had successful percutaneous coronary intervention to the mid and distal left anterior descending coronary artery. The patient had no complications with procedures. The patient was placed on appropriate cardiac medications during hospitalization. The patient is being discharged to follow up with a stage procedure to undergo percutaneous coronary intervention to the circumflex, PDA and obtuse marginal branches. During hospitalization, the patient remained clinically stable. His peak troponin was 15.08. A fasting lipid profile showed a total cholesterol of 244, triglycerides 81, HDL 44 and LDL 184. The patient was placed on atorvastatin. DISCHARGE MEDICATIONS: Aspirin 325 mg daily, atorvastatin 40 mg at bedtime, metoprolol tartrate 50 mg b.i.d., Effient 10 mg daily. DISPOSITION: The patient will follow up with the CV nurse practitioner in 1-2 weeks. The patient will also be scheduled for followup intervention to the circumflex, PDA and second obtuse marginal branch. <ELECTRONICALLY SIGNED> By: Ruben Wilder MD, FACC 01/14/18 1942 1007 1841Micpeyton Wilder MD, FACC /nt
== END 2018-01-14 14:48 | disposition home or self-care (01) | DRG 247 ==
LOC: M.ERS 08:59 → M.2W 11:12 → M.TBA-ER 11:12 → M.2W 12:07
PROVIDERS: Internal Medicine; Personal Emergency Response Attendant; ADMIT Internal Medicine Cardiovascular Disease
DX: I21.4 Non-ST elevation (NSTEMI) myocardial infarction (principal); E78.5 Hyperlipidemia, unspecified; I10 Essential (primary) hypertension; I25.10 Atherosclerotic heart disease of native coronary artery without angina pectoris; J45.909 Unspecified asthma, uncomplicated; Z82.49 Family history of ischemic heart disease and other diseases of the circulatory system; Z87.891 Personal history of nicotine dependence; Z79.82 Long term (current) use of aspirin; Z79.899 Other long term (current) drug therapy; Z23 Encounter for immunization

== ENCOUNTER 2018-01-20 19:18 | Emergency (ER) | payer OTHER, MEDICAID ==
[~2018-01-20] VITALS: Ht 175.3 cm; Wt 86.2 kg
[~2018-01-20 19:18] MED LIST: ASPIR 8181 MG PO; COLACE100 MG PO; EFFIENT10 MG PO; LIPITOR 20 MG T20 M1 PO; LOPRESSOR50 PO; NORCO 5-325 TA1 EACH PO; PHENERGAN 25 MG25 M1 PO
[2018-01-20] MEDS ORDERED: BRILINTA90 MG PO (19:28)
[2018-01-20] MEDS ORDERED: NITROSTAT0.4 M1 SUBLING (19:28)
[2018-01-20 19:38] LABS: ABSOLUTE BASOPHILS 0.1 thou/uL (0.0-0.2); ABSOLUTE EOSINOPHILS 0.1 thou/uL (0.0-0.7); ABSOLUTE LYMPHOCYTES 2.2 thou/uL (0.8-5.3); ABSOLUTE MONOCYTES 0.7 thou/uL (0.0-1.2); ABSOLUTE NEUTROPHILS 6.4 thou/uL (1.6-8.1); BASOPHILS 0.7 %; EOSINOPHILS 1.3 %; HEMATOCRIT 44.8 % (42.0-52.0); HEMOGLOBIN 15.5 gm/dL (14.0-18.0); LYMPHOCYTES 22.9 %; MCH 33.1 pg (26.0-34.0); MCHC 34.6 g/dL (28.0-37.0); MCV 95.7 fL (80.0-100.0); MONOCYTES 7.5 %; NUCLEATED RBCS 0 /100WBC; PLATELET COUNT* 394 thou/uL (150-400); POLYS 67.6 %; RBC 4.69 mil/uL (4.50-6.00); RDW-CV 12.7 % (10.5-14.5); WBC 9.5 thou/uL (4.0-11.0)
[2018-01-20 19:47] LABS: ANION GAP 7 mmol/L (7-16); BUN 13 mg/dL (7-18); CALCIUM 9.4 mg/dL (8.5-10.1); CHLORIDE 101 mmol/L (98-107); CO2 28 mmol/L (21-32); CREATININE 0.9 mg/dL (0.6-1.3); GLUCOSE 88 mg/dL (70-99); POTASSIUM 4.1 mmol/L (3.5-5.1); SODIUM 136 mmol/L (136-145)
[2018-01-20 19:48] LABS: APTT 26.6 Seconds (25.0-31.3); PROTIME 10.5 Seconds (9.20-11.50)
[2018-01-20 19:58] LABS: ALBUMIN 4.3 g/dL (3.4-5.0); ALKALINE PHOSPHATASE 70 U/L (46-116); LIPASE 184 U/L (73-393); NT-PRO BRAIN NAT PEPTIDE 365 pg/mL (<300); SGOT 21 U/L (15-37); SGPT 49 U/L (30-65); TOTAL BILIRUBIN 0.8 mg/dL (<0.1-1.0); TOTAL PROTEIN 8.3 g/dL (6.4-8.2); TROPONIN-I LEVEL <0.06 ng/mL (<0.06)
[2018-01-20] MEDS ORDERED: ATIVAN1 MG PO (20:07)
[2018-01-20 20:15] VITALS: BP 123/72
--- NOTE | 2018-01-21 10:20 | EKG ---
[place] [address] ELECTROCARDIOGRAM REPORT Name: BLADIMIR FELTON 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: : 1975 Requested By: Marcell Nathan Order Number: [id number] MD: Vasyl Sanchez Measurements Intervals [place] Rate: 62 P: 37 [place]: 139 QRS: -26 QRSD: 88 T: -18 QT: 393 QTc: 399 Interpretive Statements Sinus rhythm Inferior infarct, old Probable anterior infarct, age indeterminate Baseline wander in lead(s) V6 Compared to ECG 01/14/2018 09:16:20 No significant changes Electronically Signed On 01-21-2018 10:19:57 CDT by Vasyl Sanchez [email or web address] <ELECTRONICALLY SIGNED> By: Vasyl Sanchez MD, [facility] 01/21/18 1019 21 21 Vasyl Sanchez MD, [facility] /EPI
== END 2018-01-20 20:16 | disposition home or self-care (01) ==
LOC: M.ERS 19:18
PROVIDERS: Emergency Medicine
DX: F41.9 Anxiety disorder, unspecified (principal); J45.909 Unspecified asthma, uncomplicated; Z95.5 Presence of coronary angioplasty implant and graft; Z87.891 Personal history of nicotine dependence

== ENCOUNTER 2018-01-24 07:35 | Observation (INO) | payer OTHER, MEDICAID ==
[2018-01-24] VITALS (12 sets, daily range): BP systolic 98–140; BP diastolic 59–94
[~2018-01-24] VITALS: Ht 167.6 cm; Wt 73.5 kg
--- NOTE | ~2018-01-24 | H ---
[address] [address] HISTORY AND PHYSICAL Name: BLADIMIR FELTON Room: [address] Rosario Mosley#: [id number] Admission: 01/24/18 Attend Phys: Ismael Davis MD, Discharge: 01/25/18 Date of : 79 Report #: [id number] THIS REPORT FOR: //name// Please refer to the History and Physical performed in the physician's office. By: [facility] HealthMedical Records Staff BILLY /TARYN
[~2018-01-24 07:35] MED LIST changes: +ATIVAN1 MG PO; +BRILINTA90 MG PO; +NITROSTAT0.4 M1 SUBLING
[2018-01-24 08:18] LABS: HEMATOCRIT 42.5 % (42.0-52.0); HEMOGLOBIN 14.5 gm/dL (14.0-18.0); MCHC 34.2 g/dL (28.0-37.0); MCV 96.3 fL (80.0-100.0); MPV 7.5 fl. (7.2-11.1); RBC 4.41 mil/uL (4.50-6.00); RDW-CV 12.6 % (10.5-14.5); WBC 7.6 thou/uL (4.0-11.0)
[2018-01-24 08:28] LABS: APTT 26.4 Seconds (25.0-31.3); PROTIME 10.6 Seconds (9.20-11.50)
[2018-01-24 08:30] LABS: ANION GAP 7 mmol/L (7-16); BUN 12 mg/dL (7-18); CALCIUM 9.2 mg/dL (8.5-10.1); CHLORIDE 104 mmol/L (98-107); CO2 28 mmol/L (21-32); CREATININE 0.8 mg/dL (0.6-1.3); GLUCOSE 92 mg/dL (70-99); POTASSIUM 4.1 mmol/L (3.5-5.1); SODIUM 139 mmol/L (136-145)
[2018-01-24 08:34] LABS: ALBUMIN 3.9 g/dL (3.4-5.0); ALKALINE PHOSPHATASE 64 U/L (46-116); CHOLESTEROL 101 mg/dL (<200); HDL CHOLESTEROL 33 mg/dL (>40); LDL CHOLESTEROL 56 mg/dL (<100); SGOT 20 U/L (15-37); SGPT 34 U/L (30-65); TC:HDL 3.1 Ratio (Not establshd); TOTAL BILIRUBIN 0.5 mg/dL (<0.1-1.0); TOTAL PROTEIN 7.6 g/dL (6.4-8.2); TRIGLYCERIDE 60 mg/dL (<150); VLDL 12 mg/dL (<40)
[2018-01-24 08:38] LABS: SERUM ASSESSMENT Clear
--- NOTE | 2018-01-24 16:41 | NUR ---
PT ARRIVED TO ROOM 207 AT APPROX 1115 FROM SEAL EXTRUSION OPERATOR. PT INSTRUCTED IMMOBIALZATION OF LEFT LEG AND BED REST UNTIL 1600. PT C/O PAIN IN RIGHT GROIN, REQUESTED MORPHINE, ORDER RECEIVED FOR PAIN MEDS. ADMISSION HX AND ASSESMENT DONE PER CHARTING. PTS AT BEDSIDE. PT USES CALL LIGHT APPROPRIALTY. ASKING FOR PAIN MEDS FREQUENLY.VSS, SR ON THE MONITOR. LEFT GROIN SITE SOFT, SLIGHLY SWOLLEN, NO DRAINAGE OR SIGN OF HEMATOMA. WILL CONTINUE WITH PLAN OF CARE.
--- NOTE | 2018-01-24 17:52 | EKG ---
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1975 Requested By: Ismael Davis Order Number: [id number] Reading MD: Ruben Wilder Measurements Intervals [place] Rate: 55 P: 39 [place]: 150 QRS: -18 QRSD: 88 T: -19 QT: 413 QTc: 395 Interpretive Statements Sinus rhythm Inferior infarct, age indeterminate Abnrm T, consider ischemia, anterolateral lds Compared to ECG 01/20/2018 19:22:35 Possible ischemia now present Myocardial infarct finding still present Electronically Signed On 01-24-2018 17:52:48 CDT by Ruben Wilder [email or web address] <ELECTRONICALLY SIGNED> By: Ruben Wilder MD, FACC 01/24/18 1752 5 5 Ruben Wilder MD, FACC /EPI
--- NOTE | 2018-01-24 17:54 | EKG ---
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1975 Requested By: Ismael Davis Order Number: [id number] Kenyatta MD: Ruben Wilder Measurements Intervals [place] Rate: 57 P: 52 [place]: 150 QRS: -15 QRSD: 85 T: -12 QT: 405 QTc: 395 Interpretive Statements Sinus rhythm Borderline left axis deviation Probable anterior infarct, age indeterminate Compared to ECG 01/20/2018 19:22:35 No significant changes Electronically Signed On 01-24-2018 17:54:31 CDT by Ruben Wilder [email or web address] <ELECTRONICALLY SIGNED> By: Ruben Wlider MD, [facility] 01/24/18 1754 1137 113 Ruben Wilder MD, FAC /EPI
[2018-01-25] VITALS (9 sets, daily range): BP systolic 81–115; BP diastolic 44–69
--- NOTE | 2018-01-25 04:05 | NUR ---
PATIENT RESTED IN BED, NO ACUTE CHANGES. PATIENT IS NOT SHOWING SIGNS OF DISTRESS. FALL PRECAUTIONS IN PLACE, CALL LIGHT WITH IN REACH, HOURLY ROUNDING OBSERVED. PATIENT DENIES CHEST PAIN.
[2018-01-25 04:36] LABS: HEMATOCRIT 37.9 % (42.0-52.0); MCH 32.9 pg (26.0-34.0); MCHC 34.2 g/dL (28.0-37.0); MCV 96.3 fL (80.0-100.0); MPV 7.6 fl. (7.2-11.1); RBC 3.94 mil/uL (4.50-6.00); RDW-CV 12.7 % (10.5-14.5); WBC 7.3 thou/uL (4.0-11.0)
[2018-01-25 04:59] LABS: ALBUMIN 2.9 g/dL (3.4-5.0); CREATININE 0.9 mg/dL (0.6-1.3); POTASSIUM 4.3 mmol/L (3.5-5.1); TOTAL BILIRUBIN 0.4 mg/dL (<0.1-1.0); TOTAL PROTEIN 5.9 g/dL (6.4-8.2)
[2018-01-25 05:03] LABS: TROPONIN-I LEVEL 1.52 ng/mL (<0.06)
--- NOTE | 2018-01-25 10:07 | NUR ---
ASSUMED CARE OF PT AT 0730. PT RESTING IN BED WAITING FOR BREAKFAST. PT A&0X4, COMPLAINS OF PAIN TO LEFT GROIN- TREATED WITH PRN HYDROCODONE WITH PARTIAL RELIEF. PT AND PT HAS MANY QUESTIONS REGARDING DISCHARGE- EDUCATION GIVEN. SHAHID, CARDIOLOGY NURSE IN TO SPEAK WITH PT AND PT WELL. PT BLOOD PRESSURE SOFT- AM METOPROLOL HELD AND CARDIOLOGY TO RE EVAL DOSAGE PRIOR TO DISCHARGE. PT HAD HEART CATH T-1- LEFT GROIN CATH SITE- C/D/I NO WITH HEMATOMA NOTED. BANDAID IN PLACE BY CARDIOLOGY NURSE. PT TRACING SR ON THE ADMINISTRATIVE SALES ASSISTANT. ON RA SAT UPPER 90'S. DENIES ANY SHORTNESS OF BREATH. PT UP SBA TO BATHROOM. PT GOAL FOR TODAY IS TO RE EVAL METORPOLOL DOSAGE PRIOR TO DISCHARGE HOME THIS AFTERNOON. AM ASSESSMENT CHARTED. MEDICATIONS PER MAR. PT REPOSITIONS SELF. HOURLY ROUNDING OBSERVED. BED IN LOW POSITION. CALL LIGHT WITHIN REACH. WILL CONTINUE PLAN OF CARE.
--- NOTE | 2018-01-25 12:40 | NUR ---
DR CARLSON HERE TO SEE PT. ADJUSTMENTS MADE TO METOPROLOL FOR DISCHARGE. DISCHARGE ORDERS RECEIVED. DISCHARGE INSTRUCTIONS, CARE NOTES AND FOLLOW UP APPTS GIVEN TO PT. PT COMMUNICATES UNDERSTANDING OF DISCHARGE TEACHING. IV'S AND ELECTRICAL LINE MECHANIC REMOVED. PT DISCHARGED WITH ALL BELONGINGS AND PAPERWORK VIA WHEELCHAIR WITH NURSING STAFF TO SPOUSE OWN PERSONAL VEHICLE.
--- NOTE | 2018-01-25 13:16 | CARD ---
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 Inhib., Angiomax IV 11.25 mg per kg, Angiomax Drip IV 25.77 ml per hr, Aspirin PO 81 mg Procedure Narrative The patient was brought electively to the Cardiac Catheterization Laboratory and was prepped and draped in a sterile manner. The left femoral was infiltrated with 2% Lidocaine subcutaneous anesthesia. A [place] 6 FR sheath was inserted into the left femoral artery. Coronary angiography was performed using coronary diagnostic catheters. The left coronary system was accessed and visualized with a Diagnostic 6Fr JL4 catheter. The left ventricle was accessed and visualized with a Diagnostic 6Fr JR4 catheter. Left ventriculogram was performed in PATRICK projection. Pre-demployment femoral angiogram was performed . Closure device was deployed with a Fr Angioseal STS 6Fr. Hemostasis was obtained with [place] [address] CARDIAC CATH REPORT Name: BLADIMIR FELTON Room: [address] Rosario Mosley#: [id number] Admission: 01/24/18 Attend Phys: Ismael Davis MD, Discharge: 01/25/18 Date of : 79 Report #: [id number] removal without any complications. The patient tolerated the procedure well and there were no complications associated with the procedure. There was no hematoma. Intraoperative Conscious Sedation Sedation start time: 09:27 Case end Time: 10:49 Fentanyl 50 mcg Versed 2 mg Fluoro Time: 23.8 minutes Dose: DAP [id number] cGycm2 2580 mGy Contrast Type and Amount: Visipaque 520 ml Diagnostic Cath Left Main 0% narrowing LAD Widely patent proximal mid and distal LAD stents with 30% mid vessel narrowing Circumflex Dominant vessel with 90% distal stenosis extending into the posterior descending branch and with 80% stenosis of the proximal portion of the second marginal branch Right Coronary Small nondominant vessel with 30% mid vessel narrowing as previously defined Left Ventriculography The left ventricle is normal in size with normal contractility. The left ventricular ejection fraction is estimated to be 60%. Left ventricular wall motion abnormalities are not present. There is no mitral insufficiency. Hemodynamics The aortic pressure is 95/51 mmHg with a mean of 69 mmHg. The left ventricular pressure is 97/3 mmHg with a mean of mmHg. The left ventricular end diastolic pressure is 13 mmHg. Pullback from the left ventricle to the aorta revealed no gradient across the aortic valve. PCI Technique Lesion Percutaneous coronary intervention was performed on the distal circumflex artery segment. The lesion stenosis prior to intervention was 90% with STEPAN 3 flow. A 6FR XB 3.0 100CM Guide Catheter was used to engage the ostium. A ProwaterFlex 180CM Interventional Guidewire was used to cross the lesion. BALLOON DILATION A Balloon catheter Mini Trek RX 2.0 X 20 was inserted and inflated up to 10.00atm for 9seconds. Additional Inflation: 14.00atm [place] [address] CARDIAC CATH REPORT Name: BLADIMIR FELTON Room: [address] Rosario M.R.#: [id number] Admission: 01/24/18 Attend Phys: Ismael Davis MD, Discharge: 01/25/18 Date of : 79 Report #: [id number] 12seconds. Additional Inflation: 10.00atm for 10seconds. A balloon catheter NC trek 2.0X12 was inserted and inflated up to 16:00 for 8 seconds. additional inflation 20:00 janel for 8 seconds. 18:00 janel for 8 seconds. 14:00 janel for 8 seconds. STENT DEPLOYMENT A drug-eluting stent [place] RX Stent 2.0X30mm 2.25x18 was inserted and inflated up to 8.00atm for 12seconds. Additional Inflation: 9.00atm for 12seconds. A drug-eluting stent Elvis 2.25X18 was inserted and inflated up to 10:00 janel for 8 seconds. additional inflation up to 12:00 for 5 seconds. 14:00 janel for 8 seconds. POST STENT DEPLOYMENT BALLOON DILATION A Balloon catheter NC Trek RX 2.25x12 was inserted and inflated up to 17.00atm for 8seconds. Additional Inflation: 22.00atm for 9seconds. Additional Inflation: 12.00atm for 7seconds. Final angiography reveals 10 % stenosis with STEPAN 3 flow. PCI Technique Lesion 2 Percutaneous Coronary Intervention was performed on the second obtuse marginal branch segment. The lesion stenosis prior to intervention was 80% with STEPAN 3 flow. A 6FR XB 3.0 100CM Guide Catheter was used to engage the ostium. A ProwaterFlex 180CM Interventional Guidewire was used to cross the lesion. Balloon Dilation A Balloon catheter NC Trek RX 2.25x12 was inserted and inflated up to 12atm for 10seconds. Stent Deployment A drug-eluting stent Elvis RX Stent 2.0X22mm was inserted and inflated up to 8.00atm for 4seconds. Additional Inflation: 14.00atm for 11seconds. Final angiography reveals 0 % stenosis with STEPAN 3 flow. Conclusion #1 significant coronary artery disease characterized by the following: A 0% left main coronary artery narrowing B widely patent proximal mid and distal LAD stents with 30% mid vessel narrowing [address] [address] CARDIAC CATH REPORT Name: BLADIMIR FELTON Room: [address] Rosario Mosley#: [id number] Admission: 01/24/18 Attend Phys: Ismael Davis MD, Discharge: 01/25/18 Date of : 79 Report #: [id number] C large dominant circumflex with 90% distal stenosis extending into the posterior descending branch and with 80% stenosis of the proximal portion of the second marginal branch D small nondominant right coronary artery with 30% mid vessel narrowing #2 normal left ventricular systolic function, estimate ejection fraction being 60% #3 normal left-sided hemodynamics study #4 successful percutaneous coronary intervention with deployment of sequential drug-eluting stents at the site of 90% distal circumflex stenosis with 10% residual narrowing and STEPAN-3 flow to the distal vessel #5 successful percutaneous coronary intervention with deployment of drug-eluting stent at the site of 80% tubular narrowing of the proximal portion of the second marginal branch of the dominant circumflex with 0% residual narrowing and STEPAN-3 flow to the distal vessel Recommendations Cardiac Risk Reduction Program Aggressive Medical Therapy Medications Administered Aspirin (any) Ticagrelor Diagnostic Cath Approved by: Ismael Davis MD Date/Time: 01/25/2018 13:14:56 <ELECTRONICALLY SIGNED> By: Ismael Davis MD, FACC 01/25/18 1315 1315 1315Imsael Davis MD, FACC /INF
--- NOTE | 2018-01-25 18:14 | EKG ---
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: : 1975 Requested By: Ismael Davis Order Number: [id number] Reading MD: Ruben Wilder Measurements Intervals [place] Rate: 58 P: 37 CA: 157 QRS: -18 QRSD: 88 T: -25 QT: 414 QTc: 407 Interpretive Statements Sinus rhythm Inferior infarct, age indeterminate, possible Abnrm T, consider ischemia, anterolateral lds Baseline wander in lead(s) V1 Compared to ECG 01/24/2018 11:37:22 Possible ischemia now present Myocardial infarct finding still present Electronically Signed On 01-25-2018 18:13:55 CDT by Ruben Wilder [email or web address] <ELECTRONICALLY SIGNED> By: Ruben Wilder MD, FACC 01/25/18 1813 9 9 Ruben Wilder MD, FACC /EPI
--- NOTE | 2018-01-29 12:22 | D ---
[address] [address] DISCHARGE SUMMARY Name: BLADIMIR FELTON Room: [address] Rosario Mosley#: [id number] Admission: 01/24/18 Attend Phys: Ismael Davis MD, Discharge: 01/25/18 Date of : 79 Report #: [id number] THIS REPORT FOR: //name// CC: ADRIEL physician/PCP Ismael Davis DATE OF SERVICE: 01/25/2018 FINAL DISCHARGE DIAGNOSES: 1. Unstable angina. 2. Coronary artery disease, status post recent inferior wall myocardial infarction. 3. Status post percutaneous coronary intervention of the chronically totally occluded left anterior descending 7-10 days ago and status post percutaneous coronary intervention of the circumflex on 01/24/2018. 4. Hypertension. 5. Hyperlipoproteinemia. 6. History of tobacco abuse. PROCEDURES: 01/24/2018 -- left heart catheterization, left ventriculography, selective coronary arteriography, and percutaneous coronary intervention of the distal circumflex and second marginal branch. The patient is a very pleasant 42-year-old [place] Citizen male who presented with acute coronary syndrome. He was found to have a chronic total occlusion of mid LAD, which was intervened upon approximately 10 days ago with sequential drug-eluting stents placed in the proximal, mid and distal LAD with a good angiographic result. There was STEPAN 3 flow of the distal vessel following that procedure. He had apical hypokinesis noted. He was also noted to have significant second marginal distal circumflex stenosis, which was not approached in that acute setting. He was recatheterized on 01/24/2018 and that study revealed widely patent LAD stents with 80% tubular second marginal narrowing and 90% irregular distal circumflex narrowing. Two drug-eluting stents were deployed in the distal circumflex and one in the second marginal branch with 0% second marginal residual narrowing and 10% residual narrowing of the distal circumflex with STEPAN 3 flow to both distal circulations. The patient did well post-procedurally with a minimal increase in troponin to 1.52. He ambulated in the hallways without difficulty with good hemostasis at the left femoral site of catheterization. Laboratory on 01/25/2018 revealed hemoglobin of 13.0, white blood cell count 7300 with 350,000 platelets. Sodium 139, potassium 4.3, BUN 12, creatinine 0.9. The patient ambulated in the hallways without difficulty. He was discharged to home on aspirin 81 mg daily, atorvastatin 40 mg at bedtime, [place] [address] DISCHARGE SUMMARY Name: BLADIMIR FELTON Room: [address] Rosario Mosley#: [id number] Admission: 01/24/18 Attend Phys: Ismael Davis MD, Discharge: 01/25/18 Date of : 79 Report #: [id number] lorazepam 1 tablet b.i.d. as needed, metoprolol tartrate 50 mg b.i.d., p.r.n. sublingual nitroglycerin, ticagrelor or Brilinta 90 mg b.i.d. The patient is scheduled to see my nurse practitioner in 7-10 days and myself in 6 weeks. Thus, the patient is discharged to home in stable condition on the aforementioned medications with followup as iterated above. <ELECTRONICALLY SIGNED> By: Ismael Davis MD, FACC 01/29/18 1222 0913 [id number] Lauren Davis MD, FACC /nt
== END 2018-01-25 12:40 | disposition home or self-care (01) ==
LOC: M.CL 07:35 → M.2W 11:04 → M.TBA-CV 11:04 → M.2W 11:21 → M.CL 02-24 09:00
PROVIDERS: ADMIT Internal Medicine
DX: I25.110 Atherosclerotic heart disease of native coronary artery with unstable angina pectoris (principal); I10 Essential (primary) hypertension; E78.5 Hyperlipidemia, unspecified; I21.4 Non-ST elevation (NSTEMI) myocardial infarction; F41.9 Anxiety disorder, unspecified; R00.2 Palpitations; Z87.891 Personal history of nicotine dependence; Z95.5 Presence of coronary angioplasty implant and graft; Z79.82 Long term (current) use of aspirin